=== PATIENT | female | born 1995 | race Caucasian/White ===

== ENCOUNTER 2017-08-18 11:39 | Emergency (ER) | payer SELFPAY ==
[~2017-08-18] VITALS: Ht 162.6 cm; Wt 45.9 kg
[2017-08-18 11:42] VITALS: Ht 162.6 cm; Wt 45.9 kg
[2017-08-18] MEDS ORDERED: KETOROLAC 30 MG INJ IM STA (12:45)
--- NOTE | 2017-08-18 13:04 | ERD ---
ER Documentation Chief Complaint Chief Complaint U/L/Q abd pain x 2 days denies N/V/D HPI 21-year-old female presents emergency department for left flank pain for 2 days. Also complains of dizziness. She also stated that she has discolored urine or questionable blood in urine yesterday. Denies headache, throat pain, difficulty swallowing, shoulder pain, chest pain, nausea, vomiting, diarrhea, constipation, vaginal discharge, or possibility of being , loss of bowel bladder control, changes in bowel and bladder habits, trauma, injury, falls, recent travel, recent exposure to any illness, recent antibiotic use in the last 3 months, fever, chills. ROS All systems reviewed and are negative except as per history of present illness. Medications Home Meds Active Scripts Docusate Sodium* (Colace*) 100 Mg Capsule, 100 MG PO DAILY Y for constipation, # 30 CAP Prov:PASILABAN,KLAR F 08/18/17 Ibuprofen* (Motrin*) 600 Mg Tab, 600 MG PO Q8, #30 TAB Prov:PASILABAN,HEIDYAR F 08/18/17 Sulfamethoxazole/Trimethoprim* (Bactrim Ds* Tablet) 1 Each Tablet, 1 TAB PO BID , #14 TAB Prov:PASILABAN,HEIDYAR F 08/18/17 Allergies Allergies: Coded Allergies: No Known Allergy (Unverified , 08/18/17) Physical Exam Vitals Vital Signs Date Time Temp Pulse Resp B/P Pulse Ox O2 Delivery O2 Flow Rate FiO2 08/18/17 11:42 99.8 98 18 116/76 97 Physical Exam Const: Mild distress due to pain. Head: Atraumatic Eyes: Normal Conjunctiva ENT: Normal External Ears, Nose and Mouth. Neck: Full range of motion..~ No meningismus. Resp: Clear to auscultation bilaterally Cardio: Regular rate and rhythm, no murmurs Abd: Soft, non tender, non distended. Normal bowel sounds. Left sided CVA tenderness. Skin: No petechiae or rashes Back: No midline or flank tenderness Ext: No cyanosis, or edema Neur: Awake and alert Psych: Normal Mood and Affect Result Diagram: 08/18/17 1314 08/18/17 1314 Results 24 hrs Laboratory Tests Test 08/18/17 13:14 White Blood Count 15.110^3/ul Red Blood Count 4.7110^6/ul Hemoglobin 14.8g/dl Hematocrit 43.4% Mean Corpuscular Volume 92.1fl Mean Corpuscular Hemoglobin 31.4pg Mean Corpuscular Hemoglobin Concent 34.1g/dl Red Cell Distribution Width 11.6% Platelet Count 91135^3/UL Mean Platelet Volume 9.2fl Neutrophils % 81.2% Lymphocytes % 9.5% Monocytes % 8.6% Eosinophils % 0.1% Basophils % 0.2% Nucleated Red Blood Cells % 0.0/100WBC Neutrophils # 12.310^3/ul Lymphocytes # 1.410^3/ul Monocytes # 1.310^3/ul Eosinophils # 0.010^3/ul Basophils # 0.010^3/ul Nucleated Red Blood Cells # 0.010^3/ul Urine Color YELLOW Urine Clarity SLIGHTLY CLOUDY Urine pH 6.0 Urine Specific [place] 1.010 Urine Ketones NEGATIVEmg/dL Urine Nitrite POSITIVEmg/dL Urine Bilirubin NEGATIVEmg/dL Urine Urobilinogen NEGATIVEmg/dL Urine Leukocyte Esterase 3+Stefano/ul Urine Microscopic RBC 14/HPF Urine Microscopic WBC 70/HPF Urine Squamous Epithelial Cells FEW/HPF Urine Bacteria MODERATE/HPF Urine Mucus FEW/HPF Urine Hemoglobin 2+mg/dL Urine Glucose NEGATIVEmg/dL Urine Total Protein 1+mg/dl Sodium Level 143mmol/L Potassium Level 3.9mmol/L Chloride Level 100mmol/L Carbon Dioxide Level 27mmol/L Anion Gap 20 Blood Urea Nitrogen 9mg/dl Creatinine 0.65mg/dl Glucose Level 100mg/dl Calcium Level 10.0mg/dl Total Bilirubin 1.0mg/dl Direct Bilirubin 0.00mg/dl Indirect Bilirubin 1.0mg/dl Aspartate Amino Transf (AST/SGOT) 24IU/L Alanine Aminotransferase (ALT/SGPT) 25IU/L Alkaline Phosphatase 99IU/L Total Protein 8.7g/dl Albumin 5.1g/dl Globulin 3.60g/dl Albumin/Globulin Ratio 1.41 Amylase Level 65U/L Lipase 20U/L Current Medications Medications (Trade) Dose Ordered Sig/Twan Route PRN Reason Start Time Stop Time Status Last Admin Dose Admin Ketorolac Tromethamine (Toradol) 30 mg ONCE STAT IM 08/18/17 12:45 08/18/17 12:47 DC 08/18/17 13:05 Ceftriaxone Sodium (Rocephin) 1 gm ONCE ONCE IM 08/18/17 15:30 08/18/17 15:31 DC 08/18/17 15:47 Procedures/MDM 21-year-old female presents emergency department for left flank pain for 2 days. Also complains of dizziness. She also stated that she has discolored urine or questionable blood in urine yesterday. Denies headache, throat pain, difficulty swallowing, shoulder pain, chest pain, nausea, vomiting, diarrhea, constipation, vaginal discharge, or possibility of being , loss of bowel bladder control, changes in bowel and bladder habits, trauma, injury, falls, recent travel, recent exposure to any illness, recent antibiotic use in the last 3 months, fever, chills. Differential diagnosis: Diverticulitis versus diverticulosis versus nephrolithiasis versus pyelonephritis versus urinary tract infection versus abdominal pain Blood works: Elevated white count. POC urine : Negative. Urinalysis: UTI. CT of the abdomen and pelvis without IV contrast IMPRESSION: 1. No renal mass, nephrolith, hydronephrosis, or perinephric stranding is identified. The ureters are not dilated and no ureterolith is evident and the bladder appears unremarkable. 2. Substantial stool seen in the colon without evidence of bowel obstruction or inflammation and with a normal vermiform appendix. 3. Otherwise, unremarkable non-enhanced CT scan of the abdomen and pelvis. Final Diagnosis: Pyelonephritis, constipation, elevated white count Prescription: Keflex. Motrin. Colace. Follow-up with PCP in the next 24-48 hours. Come back in the emergency department for any new symptoms or any worsening of symptoms. All questions and concerns are answered. Patient and family member verbalized understanding and agreed with the plan of care. Hemodynamically stable on discharge. Departure Diagnosis: Primary Impression: Pyelonephritis Additional Impression: Constipation Condition: Stable Additional Instructions: Follow-up with PCP in the next 24-48 hours. Come back in the emergency department for any new symptoms or any worsening of symptoms. All questions and concerns are answered. Patient and family member verbalized understanding and agreed with the plan of care. RIAZ DYER Aug 18, 2017 13:04
[2017-08-18 13:28] LABS: BASOPHILS % 0.2 % (0.0-2.0); EOSINOPHILS % 0.1 % (0.0-7.0); HEMATOCRIT 43.4 % (37.0-47.0); HEMOGLOBIN 14.8 g/dl (12.0-16.0); LYMPHOCYTES # 1.4 10^3/ul (0.8-2.9); LYMPHOCYTES % 9.5 % (15.0-51.0); MEAN CORPUSCULAR HEMOGLOBIN 31.4 pg (29.0-33.0); MEAN CORPUSCULAR HGB CONC 34.1 g/dl (32.0-37.0); MEAN CORPUSCULAR VOLUME 92.1 fl (82.0-101.0); MEAN PLATELET VOLUME 9.2 fl (7.4-10.4); MONOCYTE # 1.3 10^3/ul (0.3-0.9); MONOCYTES % 8.6 % (0.0-11.0); NEUTROPHIL # 12.3 10^3/ul (1.6-7.5); NEUTROPHILS % 81.2 % (39.0-77.0); PLATELET COUNT 314 10^3/UL (140-415); RED BLOOD COUNT 4.71 10^6/ul (4.20-5.40); RED CELL DISTRIBUTION WIDTH 11.6 % (11.5-14.5); WHITE BLOOD COUNT 15.1 10^3/ul (4.8-10.8)
[2017-08-18 13:40] LABS: ADD UMIC YES; UR ASCORBIC ACID NEGATIVE (NEGATIVE); UR BACTERIA MODERATE /HPF (NONE SEEN); UR BILIRUBIN (Dip) NEGATIVE (NEGATIVE); UR BLOOD (Dip) 2+ mg/dL (NEGATIVE); UR CLARITY SLIGHTLY CLOUDY (CLEAR); UR COLOR YELLOW (YELLOW); UR GLUCOSE (Dip) NEGATIVE (NEGATIVE); UR KETONES (Dip) NEGATIVE (NEGATIVE); UR LEUKOCYTE ESTERASE (Dip) 3+ Leu/ul (NEGATIVE); UR MUCUS FEW /HPF (NONE SEEN); UR NITRITE (Dip) POSITIVE (NEGATIVE); UR RBC 14 /HPF (0-5); UR SQUAMOUS EPITHELIAL CELL FEW /HPF (FEW); UR TOTAL PROTEIN (Dip) 1+ mg/dl (NEGATIVE); UR UROBILINOGEN (Dip) NEGATIVE (NEGATIVE)
[2017-08-18 13:45] LABS: ALBUMIN 5.1 g/dl (3.3-4.9); ALBUMIN/GLOBULIN RATIO 1.41; CREATININE 0.65 mg/dl (0.44-1.00); POTASSIUM 3.9 mmol/L (3.5-5.1); TOTAL PROTEIN 8.7 g/dl (6.1-8.1)
[2017-08-18] MEDS ORDERED: CEFTRIAXONE 1 GM INJ IM ONE (15:30)
--- NOTE | 2017-08-18 15:39 | RADRPT ---
PROCEDURE: CT Abdomen and Pelvis without contrast CLINICAL INDICATION: Left-sided flank pain and hematuria for 3 days TECHNIQUE: Transaxial images were obtained through the abdomen and pelvis on a multi-slice scanner without the intravenous contrast administration. No oral contrast had previously been given. Sagit christiano and coronal re-formations were subsequently reconstructed. One or more of the following dose reduction techniques were used: - Automated exposure control. - Adjustment of the mA and/or kV according to patient size. - Use of iterative reconstruction technique. Radiation dose: CTDIvol = 4.00 mGy; DLP = 183.05 mGy-cm. COMPARISON: No prior studies are available for comparison. FINDINGS: Lung bases: The visualized lung bases appear unremarkable. Liver: Normal in size and in attenuation. There is no focal lesion. Gallbladder: The wall is not thickened. No radiopaque stones are identified. Bile ducts: The intra and extrahepatic bile ducts are normal in caliber. Pancreas: Appears normal with no mass or inflammation evident. Spleen: Normal in size with no focal lesion. Adrenals: Normal with no mass identified. Kidneys, ureters and bladder: The kidneys are normal in size and there is no mass, pathological calc ification, or hydronephrosis evident. The ureters are normal in caliber and no ureteroliths are iden tified. The bladder appears unremarkable. Reproductive organs: The uterus deviates to the left of midline. No adnexal mass is evident. Stomach and bowel: The stomach appears unremarkable. Substantial stool is seen within the colon. The re is no evidence of bowel obstruction or inflammation. Appendix: Portions of an unremarkable appearing vermiform appendix are identified. Peritoneum: No free intraperitoneal fluid or air is identified. Aorta: Normal in caliber with no aneurysmal dilatation. IVC: Unremarkable. Lymph nodes: No pathologically enlarged nodes are identified. Osseous structures: The osseous elements appear intact. IMPRESSION: 1. No renal mass, nephrolith, hydronephrosis, or perinephric stranding is identified. The ureters a re not dilated and no ureterolith is evident and the bladder appears unremarkable. 2. Substantial stool seen in the colon without evidence of bowel obstruction or inflammation and wi th a normal vermiform appendix. 3. Otherwise, unremarkable non-enhanced CT scan of the abdomen and pelvis. Richard Montalvo Physician Date Time Electronically viewed and signed by Richard Montalvo Physician on 08/18/2017 15:39 RH/
[2017-08-18] MEDS ORDERED: IBUP-1542 PO (16:16)
[2017-08-18] MEDS ORDERED: SULF1TAB31 PO (16:16)
[2017-08-18] MEDS ORDERED: DOCU-144 PO (16:17)
== END 2017-08-18 17:34 | disposition home or self-care (01) ==
LOC: FTE 11:39
DX: N12 Tubulo-interstitial nephritis, not specified as acute or chronic (principal); K59.00 Constipation, unspecified
CPT/HCPCS: 74176; 80053; 81001; 82150; 83690; 85025; 87086; 96372; 99285; J0696; J1885